=== PATIENT | female | born 1990 | race Two or more races ===

== ENCOUNTER 2021-02-20 04:03 | Inpatient (IN) | payer OTHER ==
[~2021-02-20] VITALS: Ht 160 cm; Wt 2.3 kg
[2021-02-20] MEDS ORDERED: PRENATAL TABLE1 EAC1 PO (05:00)
[2021-02-20] MEDS ORDERED: [UNRECOGNIZED DRUG - OTHER] PO (05:01)
[2021-02-20] MEDS ORDERED: ECOTRIN81 MG PO (05:02)
[2021-02-20] MEDS ORDERED: IRON325 MG PO (05:02)
[2021-02-20] MEDS ORDERED: LOVENOX40 MG/0.4 SUBCUTANEO (05:03)
[2021-02-20] MEDS ORDERED: ADALAT CC30 MG PO (05:04)
== END 2021-02-23 12:58 | disposition home or self-care (01) | DRG 786 ==
LOC: O/R 04:03 → LDR 04:03 → O/R 13:55 → OB/GYN 15:36 → SURG-SUITE 02-21 08:34
PROVIDERS: ADMIT Specialist; ATTEND Specialist
PROC: 3E033VJ Introduction of Other Hormone into Peripheral Vein, Percutaneous Approach (ICD-10-PCS; 2021-02-20)
PROC: 4A1HXFZ Monitoring of Products of Conception, Cardiac Rhythm, External Approach (ICD-10-PCS; 2021-02-20)
PROC: 10D00Z1 Extraction of Products of Conception, Low, Open Approach (ICD-10-PCS; principal; 2021-02-20 09:00)
DX: O65.9 Obstructed labor due to maternal pelvic abnormality, unspecified (principal); O60.23X0 Term delivery with preterm labor, third trimester, not applicable or unspecified; O41.03X0 Oligohydramnios, third trimester, not applicable or unspecified; Z3A.37 37 weeks gestation of pregnancy; Z37.0 Single live birth